=== PATIENT | male | born 1955 | race African-American/Black ===

== ENCOUNTER 2022-03-11 11:11 | Emergency (ER) | payer MEDICARE ==
[~2022-03-11] VITALS: Ht 182.9 cm; Wt 90.0 kg
[2022-03-11] MEDS ORDERED: SODIUM CHLORIDE 0.9% 1,000 ML IV ONE (11:30)
[2022-03-11 12:00] LABS: BASOPHILS % 0.6 % (0.0-2.0); EOSINOPHILS % 1.4 % (0.0-5.0); HEMATOCRIT. 42.4 % (42.0-52.0); HEMOGLOBIN. 14.4 g/dL (14.0-18.0); LYMPHOCYTES % 42.6 % (20.0-50.0); MEAN CORPUSCULAR HEMOGLOBIN 30.1 pg (28.0-32.0); MEAN CORPUSCULAR VOLUME 88.8 fL (80.0-94.0); MEAN PLATELET VOLUME 8.2 fl (7.4-10.4); MONOCYTES % 9.1 % (2.0-8.0); NEUTROPHILS % 46.3 % (40.0-76.0); PLATELET 176 x1000/uL (130-400); RED BLOOD CELL COUNT 4.77 mill/uL (4.7-6.1)
[2022-03-11 12:08] LABS: CHLORIDE 110 mEq/L (98-107)
[2022-03-11 12:18] LABS: ETHANOL BLOOD < 10 mg/dL
[2022-03-11 14:38] VITALS: BP 135/79
== END 2022-03-11 14:40 | disposition home or self-care (01) ==
LOC: ER 13:09
DX: N17.9 Acute kidney failure, unspecified (principal); R55 Syncope and collapse
CPT/HCPCS: 36415; 71045; 80053; 80320; 83880; 84484; 85025; 93005; 99285; J7030; G0480